=== PATIENT | female | born 1995 | race Caucasian/White ===

== ENCOUNTER 2020-03-30 15:20 | Outpatient (REF) | payer OTHER, SELFPAY ==
[2020-04-02 11:39] LABS: Varicella IgG Antibody Positive (See Note)
== END 2020-03-30 15:40 ==
LOC: NCHCN 15:20
PROVIDERS: Visit Provider Nurse Practitioner Family
DX: Z11.59 Encounter for screening for other viral diseases (principal)
CPT/HCPCS: 86787

== ENCOUNTER 2020-07-06 16:06 | Outpatient (REF) | payer OTHER, SELFPAY ==
[2020-07-11 04:01] LABS: SARS-CoV-2 RNA Undetected (Undetected)
== END 2020-07-06 16:26 ==
LOC: NCHCN 16:06
PROVIDERS: Visit Provider Nurse Practitioner Family
DX: Z11.59 Encounter for screening for other viral diseases (principal)
CPT/HCPCS: U0003

== ENCOUNTER 2022-04-07 10:04 | Outpatient (REF) | payer MEDICAID, SELFPAY ==
[2022-04-08 11:24] LABS: Varicella IgG Antibody Positive (See Note)
== END 2022-04-07 10:05 | disposition home or self-care (01) ==
LOC: NCHCN 10:04
PROVIDERS: Visit Provider Nurse Practitioner Family
DX: E66.9 Obesity, unspecified (principal); Z01.84 Encounter for antibody response examination; Z00.00 Encounter for general adult medical examination without abnormal findings; Z11.59 Encounter for screening for other viral diseases
CPT/HCPCS: 86787

== ENCOUNTER 2024-06-13 16:38 | Outpatient (REF) | payer MEDICAID, SELFPAY ==
[2024-06-13 22:24] LABS: TSH 1.68 uIU/Ml (0.36-3.74)
== END 2024-06-13 16:39 | disposition home or self-care (01) ==
LOC: NCHCN 16:38
PROVIDERS: Visit Provider Nurse Practitioner Family
DX: R63.5 Abnormal weight gain (principal)
CPT/HCPCS: 84443